=== PATIENT | female | born 1980 | race Caucasian/White ===

== ENCOUNTER → 2019-12-25 08:21 | Outpatient (BNVA) | payer OTHER, SELFPAY | PROVIDERS: Family Provider Nurse Practitioner Family; PCP Nurse Practitioner Family; Visit Provider Family Medicine | DX: Z11.59 Encounter for screening for other viral diseases (principal); Z20.828 Contact with and (suspected) exposure to other viral communicable diseases | CPT/HCPCS: 87635 ==

== ENCOUNTER → 2020-01-15 11:41 | Outpatient (BNVA) | payer OTHER, SELFPAY | PROVIDERS: Family Provider Nurse Practitioner Family; PCP Nurse Practitioner Family; Visit Provider Nurse Practitioner | DX: J22 Unspecified acute lower respiratory infection (principal); R74.8 Abnormal levels of other serum enzymes | CPT/HCPCS: 82306; 82607; 84443; 85025; 85651; 86140 ==

== ENCOUNTER → 2020-01-16 17:49 | Outpatient (BNVA) | payer OTHER, SELFPAY | PROVIDERS: Family Provider Nurse Practitioner Family; PCP Nurse Practitioner Family; Visit Provider Family Medicine | DX: Z20.828 Contact with and (suspected) exposure to other viral communicable diseases (principal); Z11.59 Encounter for screening for other viral diseases | CPT/HCPCS: 87635 ==

== ENCOUNTER 2020-01-21 01:18 | Emergency (ER) | payer OTHER, SELFPAY ==
[2020-01-21] VITALS (8 sets, daily range): BP systolic 116–124; BP diastolic 64–75; PULSE 65–71; RESP 17–26; TEMP 36.8–36.9; O2SAT 97–99; BMI 30.7
--- NOTE | 2020-01-21 01:56 | XR_ITS ---
WS: [id number] Exam: XR chest 1V portable [id number] Date/Time of Exam: 01/21/2020 2:45 AM Reason For Exam: COVID, chest pain, near syncope Comparison 04/27/2015. Findings: The lungs are clear and fully expanded. Costophrenic angles are sharp. No infiltrates. Bronchovascula r relief appears normal. Cardiac silhouette is unremarkable. Bony elements are intact. XR/XR chest 1V portable [id number] IMPRESSION: Unremarkable chest radiograph.
--- NOTE | 2020-01-21 01:56 | ECG_ITS ---
[facility] Test Date: 2020-01-21 Pat Name: Leah Oliveira Department: Room: Gender: Female Head Waiter: : 1980 Requested By: Bonnie Koenig Order Number: [id number] Heard MD: Kae Soto M.D. Measurements Intervals [place] Rate: 72 P: 7 MT: 144 QRS: 1 QRSD: 89 T: 7 QT: 392 QTc: 432 Interpretive Statements SINUS RHYTHM NONSPECIFIC T-WAVE ABNORMALITY No previous ECG available for comparison Electronically Signed On 01-21-2020 21:44:58 EVENT SALES MANAGER by Kae Soto M.D. [id number]
--- NOTE | 2020-01-21 02:11 | W.ED.COVID ---
HPI - COVID General: Chief Complaint: COVID symptoms Stated Complaint: Chest Pain COV+ Time Seen by Provider: 01/21/20 01:38 Triage information: Has fever, cough or shortness of breath. Exposure to COVID + person last 14 days History of Present Illness: HPI Narrative: This patient is a 39-year-old female who presents today with near syncope and chest discomfort. She reports that she is Covid positive and started having symptoms on Monday. She had some cough, body aches, fatigue. She had some fevers. She has not had nausea, vomiting, diarrhea. She has lost her sense of taste and smell. She had a positive test on . She thinks that she also had Covid in December. At that time she had a negative test but the nurse practitioner at urgent care told her she thought she probably had it and treated her with steroids and antibiotics. She said she never really fully gotten back to normal and the most persistent symptom was a headache. She had been doing okay for the last few days although still fatigued. Tonight she woke up at about 11:45 PM with discomfort in her chest. She said it feels like her diaphragm is aching. She does not really feel short of breath but sometimes feels like it is hard to get a deep breath in. She said she passed out at home and felt like she was in a pass out again at triage. She laid on the floor and per the nurse did not have a complete loss of consciousness. He said she did become pale and diaphoretic. She said she seen Dr. Schafer in the past for an SA node dysfunction. She said this causes her to have a low heart rate when she is sick or dehydrated and has caused her to pass out previously. She also had a gastric sleeve procedure done in [place] earlier this year. She thinks she is lost about 50 pounds since then. She has not had any complications from that surgery. MD complaint: known COVID positive COVID 19 common symptoms: positive fever(s), chills, non-productive cough, fatigue, body aches, headache(s), loss of sense of smell and/or taste and nasal congestion; negative nausea or vomiting COVID 19 other sytmptoms: positive chest pressure and chest pain Onset (ago): other (See HPI) COVID Results: SARS-CoV-2 RNA (RT-PCR) Detected (NOT DETECTED) A 01/16/20 17:49 01/16/20 Review of Systems General: Reports: 10 or more systems reviewed and unremarkable except in HPI and below Const: Reports: fever(s), chills, body aches and fatigue Eyes: Denies: change in vision ENMT: Reports: nasal congestion Card: Reports: chest pain, syncope and pre-syncope; Denies: swelling of feet/ankles Resp: Reports: non-productive cough GI: Denies: abdominal pain, nausea or vomiting : Denies: flank pain or difficulty voiding Musc: Denies: neck pain or back pain Skin/Breast: Denies: rash Neuro: Reports: headache(s) Jadiel/Lymph: Denies: easy bruising or easy bleeding PFSH ED PFSH: Medical History Anxiety and depression Elevated vitamin B12 level GERD (gastroesophageal reflux disease) History of migraine headaches Lower respiratory infection Vitamin D deficiency Vitamin D deficiency Surgical History Bariatric surgery status (~04/2019) Laparoscopic gastric sleeve. Performed in [facility] History of section 2 Family History Grandmother Hypertension paternal Stroke maternal Mother Hypercholesteremia Grandfather Thyroid disease maternal Family/Other Stroke paternal aunt Social History Smoking and tobacco status: never smoked Second hand smoke exposure: No Alcohol intake: current Alcohol intake frequency: few times a week Female Reproductive History: Date of last menstrual period: 01/01/20 Physical Exam Const: COMMON NORMALS: no acute distress, patient oriented x3, no limitations and alert GENERAL APPEARANCE: cooperative and comfortable HENMT: HEAD & SCALP: normal to inspection FACE & SINUS: normal facial exam Eye: GENERAL EYE: appearance normal, both eyes and all related structures Neck/C-Spine: COMMON NORMALS: supple, no meningeal signs and no JVD Chest: COMMONS NORMALS: normal inspection of the chest Resp: COMMON NORMALS: normal respiratory effort, No use of accessory muscles and clear to auscultation bilaterally AUSCULTATION: clear to auscultation bilaterally Cardio: COMMON NORMALS: no JVD, regular rate, regular rhythm and No murmurs present (Cardio) RATE: regular rate RHYTHM: regular rhythm GI: COMMON NORMALS: Normal to inspection, nondistended, normoactive bowel sounds present, Soft to palpation and non-tender INSPECTION: Yes normal to inspection AUSCULTATION: Yes normoactive bowel sounds PALPATION: Yes Soft to palpation Back/Pelvis: COMMON NORMALS: thoracic and lumbar spine normal to inspection Extremity: COMMON NORMALS: normal to inspection Neuro: COMMON NORMALS: patient oriented x3, moves all extremities, no focal motor deficits and no sensory deficits noted SENSORIUM/ORIENTATION: Yes alert MENINGEAL SIGNS: Yes no meningeal signs Psych: COMMON NORMALS: mental status grossly normal, cooperative and normal affect Skin: COMMON NORMALS: no rashes or lesions noted and turgor normal GENERAL SKIN EXAM: no rashes or lesions noted and turgor normal Course ED course: Patient did have one episode in the department of bradycardia feeling like she was going to pass out. She was given some fluids and felt better. Her work-up was quite benign and she was discharged home. Vital Signs: Vital signs: Vital Signs Temperature 98.2 F 01/21/20 05:35 Pulse Rate 70 01/21/20 05:35 Respiratory Rate 19 H 01/21/20 05:35 Blood Pressure 117/72 01/21/20 05:35 Pulse Oximetry 99 01/21/20 05:35 MDM - COVID Lab Data: Labs: Lab Results 01/21/20 01/21/20 01/21/20 Range/Units 02:20 02:20 02:20 WBC 6.5 (4.0-10.0) 10^3/ uL RBC 4.49 (4.1-5.3) 10^6/u L Hgb 13.1 (11.5-15.3) g/dL Hct 40.8 (37.0-47.0) % MCV 90.9 (81-99) fL MCH 29.2 (28.0-34.0) pg MCHC 32.1 (30.0-36.0) g/dL RDW 12.7 (12.1-15.1) % Plt Count 222 (130-400) 10^3/c mm MPV 10.2 (7.4-10.4) fL Neut % (Auto) 51.2 % Lymph % (Auto) 41.3 % [place] % (Auto) 6.4 % Eos % (Auto) 0.3 % Baso % (Auto) 0.3 % Neut # (Auto) 3.35 (1.8-7.7) 10^3/u L Lymph # (Auto) 2.7 (0.8-4.8) 10^3/u L [place] # (Auto) 0.4 (0.2-0.9) 10^3/u L Eos # (Auto) 0.0 (0.0-0.8) 10^3/u L Baso # (Auto) 0.0 (0.0-0.1) 10^3/u L Nucleated RBC % (a uto) 0 % Nucleated RBCs # 0.0 /100WBC PT 13.20 (12.1-14.9) SECO NDS INR 0.97 (0.8-1.2) Fibrinogen 374 (174-498) mg/dL D-Dimer <= 0.27 (0-0.59) ug/mIFE U Sodium 136 (136-145) mmol/L Potassium 3.6 (3.5-5.1) mmol/L Chloride 103 (98-107) mmol/L Carbon Dioxide 24 (22-29) mmol/L Anion Gap 12.6 (5-19) BUN 10 (6-20) mg/dL Creatinine 1.0 H (0.5-0.9) mg/dL GFR Calculation 62.4 L (90-130) mL/min Glucose 101 (65-115) mg/dL Calculated Osmolal ity 281 L (285-295) mOsm/k g Lactic Acid (0.5-2.2) mmol/L Calcium 8.1 L (8.5-10.5) mg/dL Ferritin 60 (15-150) ng/mL Total Bilirubin 0.3 (0.15-1.2) mg/dL AST 12 (0-32) U/L ALT 16 (0-33) U/L Alkaline Phosphata se 119 H (35-105) IU/L Troponin T Baselin e (0-10) ng/L Troponin T 120 Min [place] (0-10) ng/L Delta Troponin T (0-10) ABS# C-Reactive Protein 21.3 H (0.0-4.9) mg/L NT-Pro-B Natriuret Pep 97 (0-125) pg/mL Total Protein 6.1 L (6.6-8.7) g/dL Albumin 3.7 (3.5-5.2) g/dL Globulin 2.4 (1.3-4.6) g/dL Procalcitonin 0.03 (0-0.5) ng/mL 01/21/20 01/21/20 01/21/20 Range/Units 02:20 02:20 03:49 WBC (4.0-10.0) 10^3/ uL RBC (4.1-5.3) 10^6/u L Hgb (11.5-15.3) g/dL Hct (37.0-47.0) % MCV (81-99) fL MCH (28.0-34.0) pg MCHC (30.0-36.0) g/dL RDW (12.1-15.1) % Plt Count (130-400) 10^3/c mm MPV (7.4-10.4) fL Neut % (Auto) % Lymph % (Auto) % [place] % (Auto) % Eos % (Auto) % Baso % (Auto) % Neut # (Auto) (1.8-7.7) 10^3/u L Lymph # (Auto) (0.8-4.8) 10^3/u L [place] # (Auto) (0.2-0.9) 10^3/u L Eos # (Auto) (0.0-0.8) 10^3/u L Baso # (Auto) (0.0-0.1) 10^3/u L Nucleated RBC % (a uto) % Nucleated RBCs # /100WBC PT (12.1-14.9) SECO NDS INR (0.8-1.2) Fibrinogen (174-498) mg/dL D-Dimer (0-0.59) ug/mIFE U Sodium (136-145) mmol/L Potassium (3.5-5.1) mmol/L Chloride (98-107) mmol/L Carbon Dioxide (22-29) mmol/L Anion Gap (5-19) BUN (6-20) mg/dL Creatinine (0.5-0.9) mg/dL GFR Calculation (90-130) mL/min Glucose (65-115) mg/dL Calculated Osmolal ity (285-295) mOsm/k g Lactic Acid 1.7 (0.5-2.2) mmol/L Calcium (8.5-10.5) mg/dL Ferritin (15-150) ng/mL Total Bilirubin (0.15-1.2) mg/dL AST (0-32) U/L ALT (0-33) U/L Alkaline Phosphata se (35-105) IU/L Troponin T Baselin e 6 (0-10) ng/L Troponin T 120 Min [place] 6.00 (0-10) ng/L Delta Troponin T 0 (0-10) ABS# C-Reactive Protein (0.0-4.9) mg/L NT-Pro-B Natriuret Pep (0-125) pg/mL Total Protein (6.6-8.7) g/dL Albumin (3.5-5.2) g/dL Globulin (1.3-4.6) g/dL Procalcitonin (0-0.5) ng/mL COVID Results: SARS-CoV-2 RNA (RT-PCR) Detected (NOT DETECTED) A 01/16/20 17:49 01/16/20 Discharge Plan Discharge Patient Disposition: Home Clinical Impression: Severe acute respiratory syndrome coronavirus 2 (SARS-CoV-2) detected, Near syncope Condition: Stable Prescriptions: No Action cholecalciferol (vitamin D3) 1,250 mcg (50,000 unit) capsule 50,000 unit PO DAILY 90 Days Qty: 12 RF: 1 ondansetron HCl [Zofran] 4 mg tablet 4 mg PO Q8H PRN (Reason: nausea and vomiting) 5 Days Qty: 20 RF: 2 omeprazole 20 mg capsule,delayed release(DR/EC) 20 mg PO DAILY RF: 0 alprazolam 0.5 mg tablet 0.5 mg PO DAILY PRN (Reason: anxiety) 30 Days Qty: 30 RF: 1 vitamin I03-cupicwm B1 100-1 mg/mL solution IM RF: 0 L norgest/e.estradiol-e.estrad [Amethia] 0.15 mg-30 mcg (84)/10 mcg (7) tablets,dose pack,3 month 1 tab PO DAILY Qty: 182 RF: 4 azithromycin 250 mg tablet See Rx Instructions PO .COMPLEX Qty: 6 RF: 0 hydrocortisone 2.5 % cream 1 applic TOPICAL BID PRN (Reason: skin irritation) Qty: 30 RF: 1 duloxetine 30 mg capsule,delayed release(DR/EC) See Rx Instructions .ROUTE .COMPLEX Qty: 30 RF: 5 levofloxacin 500 mg tablet 500 mg PO DAILY 5 Days Qty: 5 RF: 0 prednisone 20 mg tablet 40 mg PO DAILY 5 Days Qty: 10 RF: 0 Discharge Orders: Discharge Order (Routine); Ordered 01/21/20 Ordered By: Bonnie Vazquez Referrals: SOPHIE Juarez, RECYCLE COORDINATOR [Primary Care Provider] - Discharge Diet: Usual diet Discharge Activity: Resume usual activity Patient Instructions: Viral Syndrome (ED), Near Syncope (ED) Activity Restrictions/Additional Instructions: Rest. Use caution when up and about so that you do not fall and injure yourself. Return to the ER if new or worsening symptoms occur. Follow-up with your primary care provider. Coding Level of Care Code ED Oven Equipment Repairer for Jose Fwd Exam Comprehensive
[2020-01-21] MEDS: sodium chloride 0.9% 1,000 ML 150 ML IV (02:32)
[2020-01-21 02:38] LABS: Basophils % 0.3 %; Eosinophils % 0.3 %; Hematocrit 40.8 % (37.0-47.0); Hemoglobin 13.1 g/dL (11.5-15.3); Lymphocytes # 2.7 10^3/uL (0.8-4.8); Lymphocytes % 41.3 %; Mean Corpuscular HGB Conc 32.1 g/dL (30.0-36.0); Mean Corpuscular Hemoglobin 29.2 pg (28.0-34.0); Mean Corpuscular Volume 90.9 fL (81-99); Mean Platelet Volume 10.2 fL (7.4-10.4); Monocytes # 0.4 10^3/uL (0.2-0.9); Monocytes % 6.4 %; Neutrophils # 3.35 10^3/uL (1.8-7.7); Neutrophils % 51.2 %; Nucleated Red Blood Cells % 0 %; Platelet Count 222 10^3/cmm (130-400); Red Blood Count 4.49 10^6/uL (4.1-5.3); Red Cell Distribution Width 12.7 % (12.1-15.1); White Blood Count 6.5 10^3/uL (4.0-10.0)
[2020-01-21 02:51] LABS: INR 0.97 (0.8-1.2)
[2020-01-21 02:52] LABS: Fibrinogen 374 mg/dL (174-498)
[2020-01-21 02:54] LABS: D Dimer <= 0.27 ug/mIFEU (0-0.59)
[2020-01-21 02:59] LABS: Lactic Sepsis W/Reflex 1.7 mmol/L (0.5-2.2)
[2020-01-21 03:02] LABS: Troponin(5th) Baseline 6 ng/L (0-10)
[2020-01-21 03:10] LABS: NT Pro B Type Natriuretic Pept 97 pg/mL (0-125); Procalcitonin 0.03 ng/mL (0-0.5)
[2020-01-21 03:21] LABS: Alanine Aminotransferase 16 U/L (0-33); Albumin Level 3.7 g/dL (3.5-5.2); Alkaline Phosphatase 119 IU/L (35-105); Anion Gap 12.6 (5-19); Aspartate Amino Transferase 12 U/L (0-32); Blood Urea Nitrogen 10 mg/dL (6-20); C Reactive Protein 21.3 mg/L (0.0-4.9); Calcium 8.1 mg/dL (8.5-10.5); Carbon Dioxide 24 mmol/L (22-29); Chloride 103 mmol/L (98-107); Ferritin 60 ng/mL (15-150); Globulin 2.4 g/dL (1.3-4.6); Glomerular Filtration Rate 62.4 mL/min (90-130); Glucose 101 mg/dL (65-115); Osmolality Calculated 281 mOsm/kg (285-295); Potassium 3.6 mmol/L (3.5-5.1); Sodium 136 mmol/L (136-145); Total Bilirubin 0.3 mg/dL (0.15-1.2); Total Protein 6.1 g/dL (6.6-8.7)
--- NOTE | 2020-01-21 03:56 | ECG_ITS ---
[facility] Test Date: 2020-01-21 Pat Name: Leah Oliveira Department: Room: Gender: Female Medical Laboratory Technicians: : 1980 Requested By: Bonnie Koenig Order Number: [id number] Orquidea MD: Kae Soto M.D. Measurements Intervals [place] Rate: 64 P: 6 OK: 143 QRS: 2 QRSD: 86 T: 13 QT: 424 QTc: 438 Interpretive Statements SINUS RHYTHM Compared to ECG 01/21/2020 02:11:01 T-wave abnormality no longer present Electronically Signed On 01-21-2020 21:55:32 VESSEL SLAG WORKER by Kae Soto M.D. [id number]
[2020-01-21 04:40] LABS: Troponin 5 2HR Delta 0 ABS# (0-10)
== END 2020-01-21 05:35 | disposition home or self-care (01) ==
PROVIDERS: Emergency Provider Emergency Medicine; PCP Nurse Practitioner Family
DX: R55 Syncope and collapse (principal); U07.1 COVID-19
CPT/HCPCS: 12345; 71045; 80053; 82728; 83605; 83880; 84145; 84484; 85025; 85378; 85384; 85610; 86140; 93005; 96360; 96361; 99282; 99284; J7030

== ENCOUNTER → 2020-11-06 11:10 | Outpatient (BNVA) | payer BC, SELFPAY | PROVIDERS: PCP Nurse Practitioner Family; Visit Provider Obstetrics & Gynecology | DX: Z12.4 Encounter for screening for malignant neoplasm of cervix (principal) | CPT/HCPCS: 88175 ==

== ENCOUNTER → 2021-05-28 12:20 | Outpatient (BNVA) | payer BC, SELFPAY | PROVIDERS: PCP Nurse Practitioner Family; Visit Provider Nurse Practitioner Family | DX: Z90.3 Acquired absence of stomach [part of] (principal); R60.9 Edema, unspecified; E55.9 Vitamin D deficiency, unspecified; Z13.1 Encounter for screening for diabetes mellitus | CPT/HCPCS: 80053; 81003; 82607; 82728; 82746; 83550; 84439; 84443; 85025 ==

== ENCOUNTER 2024-03-25 11:25 | Outpatient (CLI) | payer BC, SELFPAY ==
--- NOTE | 2024-03-25 11:27 | MM_ITS ---
WS: [id number] BILATERAL SCREENING DIGITAL TOMOSYNTHESIS MAMMOGRAM WITH CAD HISTORY: SCREENING COMPARISON: None available. Bilateral CC and MLO views with tomosynthesis and synthetic mammography submitted. Computer aided det ection analyzed. Breast composition: There are scattered areas of fibroglandular density. No suspicious masses, microc alcifications or architectural distortion. Intramammary lymph node upper outer quadrant RIGHT breast. MM/MM scr BI tomosynthesis [id number] IMPRESSION: BI-RADS: 2 - Benign. FOLLOW UP: 1 Year Follow-up
== END 2024-03-25 11:26 | disposition home or self-care (01) ==
LOC: RAD 11:26
PROVIDERS: PCP Nurse Practitioner Family; Visit Provider Family Medicine
DX: Z12.31 Encounter for screening mammogram for malignant neoplasm of breast (principal); R92.323 Mammographic fibroglandular density, bilateral breasts; R59.0 Localized enlarged lymph nodes
CPT/HCPCS: 77063; 77067